=== PATIENT | female | born 1965 | race Caucasian/White ===

== ENCOUNTER 2023-04-15 21:04 | Emergency (ER) | payer OTHER, SELFPAY ==
--- NOTE | ~2023-04-15 | XR_ITS ---
EXAMINATION: XR KNEE, LEFT CLINICAL INFORMATION: Status post fall COMPARISON: None available. TECHNIQUE: Four views of the left knee. FINDINGS: There is a transverse fracture through the patella with mild displacement. Surrounding soft tissue swelling and moderate joint effusion are noted. Femorotibial alignment is anatomic, with relatively preserved joint spaces. XR/XR knee LT 4V IMPRESSION: Mildly displaced transverse fracture through the patella.
[2023-04-15 21:14] VITALS: BP 157/93; PULSE 90; RESP 18; TEMP 36.6; O2SAT 98; BMI 22.6
[2023-04-15] MEDS: Acetaminophen 325 MG TABLET 650 MG PO (21:23)
--- NOTE | 2023-04-15 21:36 | ED.LOWEXIN ---
HPI - Extremity Injury (Lower) General Chief Complaint: Extremity Injury, Lower Stated Complaint: Left knee injury Time Seen by Provider: 04/15/23 21:33 History of Present Illness HPI Narrative: Patient is a 57 year old female with a history of accidental fall. Patient denies being on any blood thinners. Denies any head strike. Fell on her left knee. Subsequently complaining of pain localized to that area. There is no pain in the ankle. There is no pain in the hips. There is no nausea no vomiting. There is no focal weakness. Related Data Previous Rx's Medication Instructions Recorded ibuprofen 400 mg tablet 400 mg PO Q6H PRN pain #20 tabs 04/15/23 oxycodone 5 mg tablet 5 mg PO Q8H PRN pain #7 tabs 04/15/23 Allergies Allergy/AdvReac Type Severity Reaction Status Date / Time shellfish derived Allergy Hives Verified 04/15/23 21:19 strawberry Allergy Hives Verified 04/15/23 21:19 Review of Systems Review of Systems: Positive pain localized to left knee. [facility] Past Medical History Attestation statement: The following information was validated with the patient. Social History Social History Advance Directives: No Advance Directives Information Provided: No Physical Exam Vital Signs: Vital Signs: Last Vital Signs Temp 97.8 F 04/15/23 21:14 Pulse 90 04/15/23 21:14 Resp 18 04/15/23 21:14 BP 157/93 H 04/15/23 21:14 Pulse Ox 98 04/15/23 21:14 O2 Del Method Room Air 04/15/23 21:14 BMI result Body Mass Index 22.6 Appearance: Alert. Oriented X3. No acute distress. Eyes: Pupils equal, round and reactive to light. ENT: Pharynx normal. Neck: Normal inspection. Neck supple. No lymph nodes noted. No crepitus CVS: Normal heart rate and rhythm. Pulses normal. Normal S1 and S2 Respiratory: No respiratory distress. Breath sounds normal. No Wheezing. No rales Abdomen: Soft and nontender. No rigidity. No distention. good BS x4 Skin: Skin warm and dry. Normal skin color. Normal skin turgor. Extremities: Examination of the left knee showed no patella tenderness. No medial lateral collateral ligament tenderness. Limited range of motion secondary to pain. More distally sensation over the foot intact. There is no tenderness over the malleolus. Bird pulse 2 + at dorsalis pedis. Skin intact. There is no pain on movement of the hip. Neuro: Oriented X 3. No motor deficit. No sensory deficit. Moving all extermities. No slurred speech Medications Administered Discontinued Medications Generic Name Dose Route Start Last Admin Trade Name Freq PRN Reason Stop Dose Admin Acetaminophen 650 mg 04/15/23 21:20 04/15/23 21:23 Acetaminophen 325 Mg Tablet PO 04/15/23 21:21 650 mg ONCE ONE Administration Oxycodone HCl 5 mg 04/15/23 22:03 04/15/23 22:09 Oxycodone Hcl Immed Release 5 Mg Tablet PO 04/15/23 22:04 Not Given ONCE ONE Discharge Plan Discharge Clinical Impression: Fracture, patella Patient Disposition: Home, Self-Care Instructions: Crutch Instructions (ED), Patellar Fracture (ED), Knee Immobilizer (ED) Prescriptions: New ibuprofen 400 mg tablet 400 mg PO Q6H PRN (Reason: pain) Qty: 20 0RF oxycodone 5 mg tablet 5 mg PO Q8H PRN (Reason: pain) Qty: 7 0RF Rx Instructions: Partial Fill upon patient request. Referrals: Kyle Stone MD [Physician] - 04/19/23
--- NOTE | 2023-04-15 22:56 | MHC.EDTECH ---
Applied left knee brace to patient. Patient tolerated it well. Educated patient how to use crutches, pt demonstrated well. SG
[2023-04-15] MEDS: oxyCODONE HCl Immed Release 5 MG TABLET PO (23:04)
== END 2023-04-15 23:46 | disposition home or self-care (01) ==
PROVIDERS: Emergency Provider Emergency Medicine Emergency Medical Services; PCP Internal Medicine
DX: S82.002A Unspecified fracture of left patella, initial encounter for closed fracture (principal); W10.1XXA Fall (on)(from) sidewalk curb, initial encounter; Y93.89 Activity, other specified; Y92.480 Sidewalk as the place of occurrence of the external cause; Y99.9 Unspecified external cause status
CPT/HCPCS: 73564; 99283

== ENCOUNTER → 2023-04-22 09:17 | Outpatient (BNVA) | payer OTHER, SELFPAY | PROVIDERS: PCP Internal Medicine; Visit Provider Orthopaedic Surgery | DX: S82.032A Displaced transverse fracture of left patella, initial encounter for closed fracture (principal) | CPT/HCPCS: 99202 ==

== ENCOUNTER 2023-04-23 06:02 | Day surgery (SDC) | payer OTHER, SELFPAY ==
--- NOTE | ~2023-04-23 | FL_ITS ---
EXAMINATION: XR FLUOROSCOPY WITH IMAGES CLINICAL INFORMATION: Fracture left patella. COMPARISON: Radiographs left knee 04/15/2023 TECHNIQUE: Fluoroscopy Supervised By: Dr. Kyle Stone. Fluoroscopy Time: 0.8 minutes. Cumulative Dose: 3.99 mGy. DAP: 0.0693 mGycm2. Images: 2. FINDINGS: The mid transverse patella fracture is reduced with 2 screws and cerclage wire. Hardware is intact. Fracture fragments in near-anatomic alignment. FL/FL guidance in OR IMPRESSION: Status post open reduction and internal fixation patella fracture.
[2023-04-23 06:20] VITALS: BMI 22.6
[2023-04-23 06:22] VITALS: BP 130/79; PULSE 85; RESP 16; TEMP 37.3; O2SAT 97
--- NOTE | 2023-04-23 07:18 | P.CONAN_ITS ---
HPI - Anesthesia Eval Consult details Narrative: 57 yo F presenting for ORIF of left patella. PMFSH Active Problems Active Problems: All Active Problems (Updated 04/22/23 @ 14:01 by Beronica Arnold RN) Fracture of left patella (Acute) Past Medical History Medical History Colon cancer Shingles Surgical History Surgical History H/O colonoscopy H/O ileostomy History of colon surgery History of partial hysterectomy History of Problems with Anesthesia: No Social History Social History Patient Tobacco Use Status: Never used Tobacco Use of substances other than those prescribed or required for medical reasons: No Are you DNR?: No Advance Directives: No Advance Directives Information Provided: Yes Current occupational status: employed 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 Meds Allergies Allergy/AdvReac Type Severity Reaction Status Date / Time shellfish derived Allergy Hives Verified 04/23/23 06:11 strawberry Allergy Hives Verified 04/23/23 06:11 Exam Exam Date and Time: April 23, 2023 0718 Height,Weight and Vital Signs: Height 5 ft 6 in Weight 63.503 kg Last Vital Signs Temp 99.2 F 04/23/23 06:22 Pulse 85 04/23/23 06:22 Resp 16 04/23/23 06:22 BP 130/79 04/23/23 06:22 Pulse Ox 97 04/23/23 06:22 O2 Del Method Room Air 04/23/23 06:22 Airway Mallampati Class: II TM Dist: >3cm Neck ROM: Full Loose/Missing/Broken Teeth: No Heart: S1S2 Lungs: CTAB Assessment and Plan Assessment Anesthesia Assessment: Anesthesia Plan Discussed and Chart Reviewed Final Anesthetic Review History of Problems with Anesthesia: No NPO: Yes ASA Class: II Final Preanesthetic Review: No Changes in Pt Med Stat, Meds/Allgs Chart Reviewed, Consent Obtained/Reviewed and Anes Risks/Benef Reviewed Patient Risk: Low Procedure Risk: Low Assessment/Block/Sedation in SS: Assess/Block/Sedation-SS Anesthetic Plan Anesthetic Plan: GA, Regional Block (left femoral block) and Agree w/ Assess. and Plan Disposition: Standard PACU
--- NOTE | 2023-04-23 07:28 | MHC.SHP ---
Pre-Procedural Eval Section A Date of Service: 04/23/23 The patient is an INPATIENT: No Changes since office visit: No Cold of Flu in the past 2 weeks, No New Medical Problems, No Changes in Medication and No Patient answered all questions The History & Physical has been completed within 30 days and I have reviewed it.: Yes Section B Chief Complaint: Unspecified fracture of left patella Allergies: Allergies Allergy/AdvReac Type Severity Reaction Status Date / Time shellfish derived Allergy Hives Verified 04/23/23 06:11 strawberry Allergy Hives Verified 04/23/23 06:11 Plan I have reviewed the history and physical and performed a pertinent physical examination on my patient. No changes have occurred unless specified. Time Spent With Patient Time: Total time managing care of this patient today ____ minutes.
--- NOTE | 2023-04-23 09:19 | P.BOP_ITS ---
Brief Operative Note Date of Service: 04/23/23 Pre-op diagnosis: Left patella fracture Post-op diagnosis: same Procedure: ORIF L patella Implants: [place] 4.0 partially threaded cannulated screws x 2 Cerclage wire 20g Surgeon: Kyle Stone MD Anesthesia: GETA and regional Was an Product Marketing Intern used for this Procedure?: No Estimated blood loss (mL): 10 Tourniquet time (min): 60 IV fluids (mL): 800 Pathology: none sent Condition: stable Disposition: PACU
[2023-04-23 09:22] VITALS: BP 110/67; PULSE 66; RESP 16; TEMP 36.2; O2SAT 100
[2023-04-23 09:27] VITALS: BP 119/69; PULSE 64; RESP 16; O2SAT 100
[2023-04-23 09:32] VITALS: BP 123/67; PULSE 61; RESP 16; O2SAT 100
[2023-04-23 09:37] VITALS: BP 108/74; PULSE 75; RESP 16; O2SAT 98
[2023-04-23 09:52] VITALS: BP 122/80; PULSE 77; RESP 16; O2SAT 97
--- NOTE | 2023-04-27 10:11 | P.OP_ITS ---
Operative Note Operative Note Date of Service: 04/23/23 Narrative: Date of Service: 04/23/23 Pre-op diagnosis: Left patella fracture Post-op diagnosis: same Procedure: ORIF L patella Implants: [place] 4.0 partially threaded cannulated screws x 2 Cerclage wire 20g Surgeon: Kyle Stone MD Anesthesia: GETA and regional Was an Store Receiving Clerk used for this Procedure?: No Estimated blood loss (mL): 10 Tourniquet time (min): 60 IV fluids (mL): 800 Pathology: none sent Condition: stable Disposition: PACU Patient was brought to the operating room and placed supine on the surgical table. She was prepped and draped in standard sterile fashion and a time out was called to identify proper site, proper procedure and IV antibiotics per weight were administered. I began by making a midline incision over the patella. Access to the proximal distal pole were confirmed and I dissected down to the patellar retinaculum. The fracture was palpable. This was a transverse fracture that extended from medial to lateral through the central 3rd of the patella. I cleaned out the fracture fragments with sharp dissection, curette and irrigation. I then placed a sharp retinaculum over the proximal and distal pole and compressed the fracture using biplanar fluoroscopy to evaluate the articular reduction. Once I was satisfied with this reduction I placed 2 partially-threaded 4.0 cannulated screws from distal to proximal in parallel across the fracture site. I was satisfied with the alignment of the hardware and the fracture reduction and a 20 gauge cerclage wire which threaded through the cannulated screws and then tied to 1 another on the anterior patella. This further compressed the fracture. I took the knee through full range of motion including hyperflexion and there was no change in fracture alignment or hardware position on both direct visual inspection and biplanar fluoroscopy. The cerclage knot was buried in the soft tissues. I then irrigated copiously and closed with absorbable suture and marilee in the skin.
== END 2023-04-23 10:55 | disposition home or self-care (01) ==
PROVIDERS: PCP Internal Medicine; Visit Provider Orthopaedic Surgery
PROC: (CPT 27524; principal; 2023-04-23 07:30)
DX: S82.032A Displaced transverse fracture of left patella, initial encounter for closed fracture (principal); W01.0XXA Fall on same level from slipping, tripping and stumbling without subsequent striking against object, initial encounter; Y93.F9 Activity, other caregiving; Y92.9 Unspecified place or not applicable; Y99.8 Other external cause status; Z85.038 Personal history of other malignant neoplasm of large intestine; Z98.890 Other specified postprocedural states
CPT/HCPCS: 27524; C1713; J0131; J0690; J1100; J1885; J2250; J2370; J2405; J2795; J3010

== ENCOUNTER 2023-05-07 06:19 | Outpatient (REF) | payer OTHER, SELFPAY ==
--- NOTE | ~2023-05-07 | XR_ITS ---
EXAMINATION: XR KNEE, LEFT CLINICAL INFORMATION: Left knee pain COMPARISON: None available. TECHNIQUE: 2 views of the left knee. FINDINGS: Again seen are changes of open reduction and internal fixation of the transverse patellar fracture. Surgical marilee are present anteriorly. 2 screws extend through the patella in a cephalocaudad dimension wire sutures. No significant fracture healing is seen at this time. Fracture fragments appear well opposed. No joint effusion detected. XR/XR knee LT 2V IMPRESSION: Status post open reduction and internal fixation of patellar fracture.
== END 2023-05-07 06:20 | disposition home or self-care (01) ==
LOC: HO.HOSX 06:19
PROVIDERS: Visit Provider Physician Assistant
DX: S82.002D Unspecified fracture of left patella, subsequent encounter for closed fracture with routine healing (principal); M25.562 Pain in left knee; X58.XXXD Exposure to other specified factors, subsequent encounter
CPT/HCPCS: 73560; 99212

== ENCOUNTER 2023-06-07 06:53 | Outpatient (REF) | payer OTHER, SELFPAY ==
--- NOTE | ~2023-06-07 | XR_ITS ---
EXAMINATION: XR KNEE, LEFT CLINICAL INFORMATION: Pain in left knee COMPARISON: 05/07/2023 TECHNIQUE: AP and lateral views of the left knee. FINDINGS: Surgical marilee have been removed since the prior study. There is unchanged appearance of surgical hardware and since the previous study there is interval healing of the previously seen patellar fracture. Alignment is unchanged. No acute fracture is identified. No joint effusion. XR/XR knee LT 2V IMPRESSION: Stable surgical changes relating to fixation of patellar fracture with evidence of interval healing.
== END 2023-06-07 06:54 | disposition home or self-care (01) ==
LOC: HO.HOSX 06:53
PROVIDERS: Visit Provider Physician Assistant
DX: S82.002D Unspecified fracture of left patella, subsequent encounter for closed fracture with routine healing (principal)
CPT/HCPCS: 73560

== ENCOUNTER 2023-06-07 10:05 | Outpatient (AMB) | payer OTHER, SELFPAY ==
[2023-06-07 10:29] VITALS: BMI 22.4
--- NOTE | 2023-06-07 10:29 | MHC.OFFVIS ---
Intake Vital Signs 06/07/23 10:29 Height 5 ft 6 in Weight 139 lb BMI 22.4 Intake Visit Reasons: Postop-LT ORIF Patella 04/23/23NE Intake Note: Larissa is a 57 year old female who presents today for a post operative left patella ORIF on 04/03/23 NE. Patient reports doing well, some discomfort. She states that physical therapy is going well, but certain movements cause her some discomfort. Steri strip are still on. Allergies shellfish derived Allergy (Verified 06/07/23 10:29) Hives strawberry Allergy (Verified 06/07/23 10:29) Hives HPI Postop-LT ORIF Patella 04/23/23NE HPI Details 57-year-old female who returns to the office today for post-op left patella ORIF, 04/23/[address] Stone. She states she has mild discomfort in her knee. She is undergoing physical therapy with benefits but she does experiences discomfort with certain movement. 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 She has no erythema or swelling. She has full extension and can act flex the knee to 70 degrees. While the patient is lying supine, I can passively flex her knee to 85 degrees. Calf supple, nontender. NVI. Results Reviewed Results Reviewed: X-rays of the left knee obtained in the office today show orthopedic hardware intact and interval healing throughout the fracture site. Assessment & Plan Assessment & Plan (1) Fracture of left patella: Code(s): S82.002A - Unspecified fracture of left patella, initial encounter for closed fracture Plan Dr. Stone was available to see the patient with me today. Overall, she is progressing quite well. She will continue to work with physical therapy becoming more aggressive with ROM. She should use the brace to walk for the next 6 weeks while we have unlocked it from 0-90 degrees. She will continue to increase activity as tolerated and will see back in 6 weeks with new x-rays. Orders: Orders XR knee LT 2V Today M25.562 - Pain in left knee Patient Instructions: Scribed for Mendel Rosas PA-C, by Morteza Baum medical writer, on 06/07/2023 at 10:15 AM EST. I, Mendel Rosas PA-C, have personally reviewed and agree with the information entered by the scribe. Coding Level of Care Code Global (71366) Diagnoses Fracture of left patella S82.002A
== END 2023-06-07 10:56 | disposition home or self-care (01) ==
PROVIDERS: PCP Internal Medicine; Visit Provider Physician Assistant
DX: S82.002A Unspecified fracture of left patella, initial encounter for closed fracture (principal)
CPT/HCPCS: 99024

== ENCOUNTER 2023-07-19 08:38 | Outpatient (REF) | payer OTHER, SELFPAY ==
--- NOTE | ~2023-07-19 | XR_ITS ---
EXAMINATION: XR KNEE, LEFT. Standing AP VIEW BILATERAL KNEES CLINICAL INFORMATION: Pain in left knee COMPARISON: 06/07/2023 TECHNIQUE: AP and lateral views of the left knee. AP standing view of bilateral knees. FINDINGS: RIGHT KNEE: Mild medial joint space narrowing. LEFT KNEE: Similar appearance of surgical hardware. Previously identified patellar fracture is still visible, but less conspicuous, suggesting continued healing. Alignment is unchanged. Moderate joint effusion. XR/XR knee LT 2V IMPRESSION: Similar postsurgical changes status post fixation of patellar fracture with evidence of continued healing.
--- NOTE | ~2023-07-19 | XR_ITS ---
EXAMINATION: XR KNEE, LEFT. Standing AP VIEW BILATERAL KNEES CLINICAL INFORMATION: Pain in left knee COMPARISON: 06/07/2023 TECHNIQUE: AP and lateral views of the left knee. AP standing view of bilateral knees. FINDINGS: RIGHT KNEE: Mild medial joint space narrowing. LEFT KNEE: Similar appearance of surgical hardware. Previously identified patellar fracture is still visible, but less conspicuous, suggesting continued healing. Alignment is unchanged. Moderate joint effusion. XR/XR knee standing BI IMPRESSION: Similar postsurgical changes status post fixation of patellar fracture with evidence of continued healing.
== END 2023-07-19 08:39 | disposition home or self-care (01) ==
LOC: HO.HOSX 08:38
PROVIDERS: Visit Provider Orthopaedic Surgery
DX: S82.002D Unspecified fracture of left patella, subsequent encounter for closed fracture with routine healing (principal); M25.562 Pain in left knee; X58.XXXD Exposure to other specified factors, subsequent encounter
CPT/HCPCS: 73560; 73565

== ENCOUNTER 2023-07-19 08:52 | Outpatient (AMB) | payer OTHER, SELFPAY ==
--- NOTE | 2023-07-19 09:00 | A.OFFVIS_ITS ---
Intake Intake Visit Reasons: 6 wk f/u ORIF left patella 04/23 Intake Note: Larissa is a 57 year old female who presents today for a post operative left patella ORIF on 04/03/23 NE. Patient reports that she is doing well , withno concerns. she is still working with physical therapy, she feels great after working with them but continues to have stiffness. Allergies shellfish derived Allergy (Verified 06/07/23 10:29) Hives strawberry Allergy (Verified 06/07/23 10:29) Hives HPI 6 wk f/u ORIF left patella 04/23 HPI Details Larissa is a 58 year old woman who presents ~3 months S/P left patella ORIF. She says she is doing well and has no complaints of pain. She continues to have some stiffness in her knee, and has been working with PT. She says after working with PT she feels great and her flexion last reached 105 degrees at PT. She has been wearing her knee brace, unlocked from 0-90 degrees. She says she has some swelling in her knee after activities, but she is able to walk well. 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 Review of Systems Const All systems reviewed & are unremarkable except as noted in HPI and below Physical Exam Const General: no acute distress, alert and awake Orientation/consciousness: patient oriented x3 HEENT Head: Yes normocephalic and Yes atraumatic Eyes EOM: EOMs intact bilaterally Resp Effort & Inspection: normal respiratory effort and able to speak in complete sentences Cardio Jugular venous distension: no JVD Skin General skin exam: turgor normal Rashes: no rashes Neuro General: patient oriented x3 Extrem Other: Left Knee: 0-110 degrees ROM Mild effusion walking comfortably Psych Appearance: grossly normal Affect: normal affect Attitude: cooperative Results Reviewed Results Reviewed: I personally reviewed relevant radiographs. Healed patella s/p ORIF. No hardware complications Assessment & Plan Assessment & Plan (1) Fracture of left patella: Code(s): S82.002A - Unspecified fracture of left patella, initial encounter for closed fracture Plan: This is a 58 year old woman S/P left patella ORIF, DOS: 04/23/23. She is doing well and is able to ambulate without pain, though she continues to have stiffness and effusion in her knee following activity. She continues to work with PT and feels this is going well. I recommend she continue to work on aggressive PT and remaining active. I ordered a repeat course of PT for her, she will follow up in 3 months. Plan Scribed for Kyle Stone MD by Pako Parker, infertility medical assistant, on 07/19/23 at 9:20 AM, EST. Orders: Orders XR knee LT 2V 07/19/23 M25.569 - Pain in unspecified knee XR knee standing BI 07/19/23 M25.569 - Pain in unspecified knee PT Evaluation and Treatment 07/19/23 S82.002A - Unspecified fracture of left patella, initial encounter for closed fracture Coding Level of Care Code Global (81867) Diagnoses Fracture of left patella S82.002A
== END 2023-07-19 11:31 | disposition home or self-care (01) ==
PROVIDERS: PCP Internal Medicine; Visit Provider Orthopaedic Surgery
DX: S82.002A Unspecified fracture of left patella, initial encounter for closed fracture (principal)
CPT/HCPCS: 99024

== ENCOUNTER 2023-09-27 10:00 | Outpatient (RCR) | payer OTHER, SELFPAY ==
--- NOTE | 2023-05-14 12:55 | MHC.PT.EP ---
[facility] [place] Office [place] Office [place] Office [address] Kolby Briceno [address] [phone] F: [phone] F: [phone] F: [phone] F: [phone] Physical Therapy Plan of Care Date of Evaluation: Date of Surgery: 04/23/2023 Diagnosis: Closed fracture of LEFT patella ORIF patella 04/23/2023 Assessment: Patient is a 57 y.o. female who is referred to PT by Mendel Rosas PA-C, with Dx of Closed fracture of LEFT patella, ORIF patella 04/23/2023 . Patient impairments include pain, swelling, gait limitations, decreased ROM, weakness. Patient current functional limitations are ambulation, stair use, bending, standing, working. Patient will benefit from skilled PT to address aforementioned impairments and functional limitations to meet established goals. Frequency and Duration: The patient will be seen 2x/week for 4 weeks Short Term Goals: 2 weeks Patient demonstrates consistency and independence with HEP to self manage symptoms. Patient presents with decreased swelling in L midpatella 40.5cm. 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 Patient presents with increased L knee flexion AROM 105 degrees to improve sit to stand with minimal need of hands. Patient presents with increased L knee extension 4-/5 to be able to perform stairs one at a time with railings. Treatment Plan: Modalities to reduce pain, spasms and effusion. Manual therapy to restore motion and function. Therapeutic exercise to improve strength and flexibility. Neuromuscular re-education for posture and balance. Therapeutic activities to return to functional activities of daily living. Electronically signed by: José Barahona, PT, DPT Please sign and return to therapist. Thank you for your referral.
--- NOTE | 2023-09-27 13:23 | MHC.PT.DC ---
[facility] [place] Office [place] Office [place] Office [address] Kolby Briceno [address] [facility] [phone] F: [phone] F: [phone] F: [phone] F: [phone] Physical Therapy Discharge Report Diagnosis: Closed fracture of LEFT patella ORIF patella 04/23/2023 Date of Surgery: 04/23/2023 Date of Evaluation: 05/14/23 Date of Discharge: 09/27/23 Treatments to Date: Cancellations to Date: No Shows to Date: Discharge Status: Achieved Goals Improved Function Independent with HEP Discharge Summary: Patient has met all goals and completed course of physical therapy. She demonstrates full AROM into both knee flexion and extension. She can continue to build strength and endurance in L knee with independent HEP. We discuss how to progress program and incorporate balance as well. She agrees to and feels prepared for discharge this session. She has been compliant with all visits and with HEP and has done extremely well with PT. Electronically signed by: José Barahona, PT, DPT Please sign and return to therapist. Thank you for your referral.
== END 2023-09-27 13:23 | disposition home or self-care (01) ==
LOC: HO.PT 10:00
PROVIDERS: PCP Internal Medicine; Visit Provider Physician Assistant
DX: S82.002D Unspecified fracture of left patella, subsequent encounter for closed fracture with routine healing (principal)
CPT/HCPCS: 97014; 97110; 97112; 97116; 97140; 97161; 97530

== ENCOUNTER 2023-10-18 11:51 | Outpatient (AMB) | payer OTHER, SELFPAY ==
--- NOTE | 2023-10-18 11:57 | MHC.OFFVIS ---
Intake Intake Visit Reasons: ov- 3 month f/u ORIF left patella 04/23 Intake Note: Larissa is a 58 year old female who presents today for a follow up of her left patella ORIF 04/23/23.Patient reports that she is doing well, has occasional pain in the knee and lower back Allergies shellfish derived Allergy (Verified 06/07/23 10:29) Hives strawberry Allergy (Verified 06/07/23 10:29) Hives HPI ov- 3 month f/u ORIF left patella 04/23 HPI Details Larissa is a 58 year old woman who presents ~6 months S/P left patella ORIF. She says she is doing well overall. She has some complaints of occasional pain in the back of her knee with activities, such as kneeling. She is able to engage in daily activities without difficulty, and is happy with the results of her surgery. 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 [employer] Review of Systems Const All systems reviewed & are unremarkable except as noted in HPI and below Physical Exam Const General: no acute distress, alert and awake Orientation/consciousness: patient oriented x3 HEENT Head: Yes normocephalic and Yes atraumatic Eyes EOM: EOMs intact bilaterally Resp Effort & Inspection: normal respiratory effort and able to speak in complete sentences Cardio Jugular venous distension: no JVD Skin General skin exam: turgor normal Rashes: no rashes Neuro General: patient oriented x3 Extrem Other: Left Knee: 0-120 degrees ROM Mild effusion walking comfortably Psych Appearance: grossly normal Affect: normal affect Attitude: cooperative Results Reviewed Results Reviewed: I personally reviewed relevant radiographs. Healed patella s/p ORIF. No hardware complications Assessment & Plan Assessment & Plan (1) Fracture of left patella: Code(s): S82.002A - Unspecified fracture of left patella, initial encounter for closed fracture Plan: This is a 58 year old woman S/P left patella ORIF, DOS: 5/26/23. She is doing well and is able to ambulate without pain, though she complains of some pain in the posterior of her knee, which may be related to her hardware. She is able to engage in daily activity without pain and is happy with the results of her surgery. I recommend she continue to remain active as tolerated. She can follow up prn. Plan Scribed for Kyle Stone MD by Pako Parker, medical doctor md/medical director, on 10/18/23 at 12:05 PM, EST. Coding Level of Care Code Est Pt Level 3 (31800) Diagnoses Fracture of left patella S82.002A
== END 2023-10-18 12:32 | disposition home or self-care (01) ==
PROVIDERS: PCP Internal Medicine; Visit Provider Orthopaedic Surgery
DX: S82.002D Unspecified fracture of left patella, subsequent encounter for closed fracture with routine healing (principal)
CPT/HCPCS: 99213

== ENCOUNTER → 2023-10-18 11:51 | Outpatient (BNVA) | payer OTHER, SELFPAY | PROVIDERS: PCP Internal Medicine; Visit Provider Orthopaedic Surgery | DX: S82.002D Unspecified fracture of left patella, subsequent encounter for closed fracture with routine healing (principal) | CPT/HCPCS: 99212 ==